=== PATIENT | male | born 1950 | race Caucasian/White ===

== ENCOUNTER 2017-02-08 11:05 | Observation (INO) | payer MEDICARE, BC ==
[2017-02-08] VITALS (9 sets, daily range): BP systolic 136–195; BP diastolic 70–103; PULSE 60–80; RESP 18–20; TEMP 97.7–98.3; O2SAT 96–100
[~2017-02-08] VITALS: Ht 190.5 cm; Wt 100.0 kg
[~2017-02-08 11:05] MED LIST: LORT5TAB PO; SYNT25TA PO
[2017-02-08] MEDS ORDERED: ASPI81CH CHEW (11:25)
[2017-02-08] MEDS ORDERED: CALC500T35 PO (11:25)
[2017-02-08] MEDS ORDERED: VITA100036 PO (11:25)
[2017-02-08] MEDS ORDERED: LEVO.2 PO (11:25)
[2017-02-08] MEDS ORDERED: OMEG100010 PO (11:25)
[2017-02-08] MEDS ORDERED: LOSA100T PO (11:25)
[2017-02-08] MEDS ORDERED: SODIUM CHLORIDE 0.9% FLUSH 10 ML FLUSH IVF PRN (11:45)
--- NOTE | 2017-02-08 11:52 | PD ---
HPI Chief Complaint: Pain: Acute or Chronic Time Seen by Provider: 11:46 Travel History International Travel<30 days: No Contact w/Intl Traveler<30days: No Traveled to known affect area: No History of Present Illness HPI Patient is a 58-year-old male presenting to the emergency department for evaluation of chest pain. Patient states pain is been intermittent for the last 3-4 days, it started as a tingling in between his shoulder blades on his back, then it progressed to midsternal chest sensation per his report. On mid Wednesday patient states that he had felt as if he was having irregular heartbeats. He has a stethoscope at home and was listening to his heart beat and felt it was irregular. He states that his has A. fib and that's what it sounded like to him. He reports increased fatigue. He states that the chest pain does not radiate to his arm or jaw, there has been no nausea, vomiting, shortness of breath, headache, abdominal pain. He has been taking 325 mg of aspirin for the last 3 days, he normally takes 81 mg of aspirin. Patient states that he has a history of an irregular heartbeat, he saw Dr. Swain in the past who had him on digoxin but then took him off. Patient states that he was taken off of it because Dr. Swain felt he no longer needed it. Patient has not had a heart catheter in the past. He has had negative stress tests in the past. His past medical history is significant for hypertension, hypothyroidism, prostate cancer. PFSH Past Medical History Cancer: Yes (PROSTATE) Cardiovascular Problems: Yes (irregular heartbeat) Hypertension: Yes Thyroid Disease: Yes Tetanus Vaccination: > 5 Years Past Surgical History Appendectomy: Yes Prostatectomy: Yes (2005) Tonsillectomy: Yes Other Surgery: Yes (melanoma) Social History Alcohol Use: Yes (OCC) Tobacco Use: No Substance Use: No Allergies-Medications (Allergen,Severity, Reaction): Coded Allergies: No Known Allergies (Verified , 02/08/17) Reported Meds & Prescriptions Reported Meds & Active Scripts Active Reported [place] 3 1000 mg ([place]-3 Fatty Acids) 1 Cap Cap 1 Tab PO DAILY Vitamin D3 (Cholecalciferol) 1,000 Unit Cap 1,000 Units PO DAILY Aspirin 81 Mg Chew 81 Mg CHEW DAILY Calcium (Oyster Shell) 500 Mg Tab 1,000 Mg PO DAILY Losartan (Losartan Potassium) 100 Mg Tab 100 Mg PO DAILY Synthroid (Levothyroxine Sodium) 200 Mcg Tab 200 Mcg PO DAILY Review of Systems Except as stated in HPI: all other systems reviewed are Neg General / Constitutional: Positive: Other (increased fatigue), No: Fever, Chills Eyes: No: Blurred Vision, Visual changes HENT: No: Headaches, Lightheadedness Cardiovascular: Positive: Chest Pain or Discomfort, Irregular Rhythm, No: Dyspnea on exertion, Edema Respiratory: No: Cough, Shortness of Breath Gastrointestinal: No: Nausea, Vomiting, Abdominal Pain Genitourinary: No: Dysuria Musculoskeletal: No: Myalgias Neurologic: No: Weakness, Dizziness, Syncope, Focal Abnormalities Physical Exam Narrative GENERAL: Well developed, well-nourished, alert elderly gentleman. Resting comfortably in no acute distress. SKIN: Focused skin assessment warm/dry. HEAD: Atraumatic. Normocephalic. EYES: Pupils equal and round. No scleral icterus. No injection or drainage. ENT: No nasal bleeding or discharge. Mucous membranes pink and moist. NECK: Trachea midline. No JVD. CARDIOVASCULAR: Regular rate and rhythm. No murmur appreciated. RESPIRATORY: No accessory muscle use. Clear to auscultation. Breath sounds equal bilaterally. GASTROINTESTINAL: Abdomen soft, non-tender, nondistended. Hepatic and splenic margins not palpable. MUSCULOSKELETAL: No obvious deformities. No clubbing. No cyanosis. No edema. NEUROLOGICAL: Awake and alert. No obvious cranial nerve deficits. Motor grossly within normal limits. Normal speech. PSYCHIATRIC: Appropriate mood and affect; insight and judgment normal. Data Data Last Documented VS Vital Signs Date Time Temp Pulse Resp B/P Pulse Ox O2 Delivery O2 Flow Rate FiO2 02/08/17 11:47 98 Room Air 02/08/17 11:09 98.3 77 18 195/103 Orders Electrocardiogram (02/08/17 ) Ckmb (Isoenzyme) Profile (02/08/17 11:45) Complete Blood Count With Diff (02/08/17 11:45) Comprehensive Metabolic Panel (02/08/17 11:45) Magnesium (Mg) (02/08/17 11:45) Prothrombin Time / Inr (Pt) (02/08/17 11:45) Act Partial Throm Time (Ptt) (02/08/17 11:45) Troponin I (02/08/17 11:45) Chest, Single Ap (02/08/17 11:45) Ecg Monitoring (02/08/17 11:45) Bilateral Bp Monitoring (02/08/17 11:45) Iv Access Insert/Monitor (02/08/17 11:45) Oximetry (02/08/17 11:45) Oxygen Administration (02/08/17 11:45) Sodium Chloride 0.9% Flush (Ns Flush) (02/08/17 11:45) Thyroid Stimulating Hormone (02/08/17 11:49) Free Thyroxine (T4) (02/08/17 11:49) CKMB (02/08/17 11:50) CKMB% (02/08/17 11:50) Admit Order (Ed Use Only) (02/08/17 13:25) Labs Laboratory Tests Test 02/08/17 11:50 White Blood Count 4.1 TH/MM3 Red Blood Count 4.18 MIL/MM3 Hemoglobin 14.2 GM/DL Hematocrit 41.8 % Mean Corpuscular Volume 99.9 FL Mean Corpuscular Hemoglobin 34.1 PG Mean Corpuscular Hemoglobin 34.1 % Concent Red Cell Distribution Width 13.1 % Platelet Count 205 TH/MM3 Mean Platelet Volume 8.3 FL Neutrophils (%) (Auto) 56.7 % Lymphocytes (%) (Auto) 26.1 % Monocytes (%) (Auto) 13.7 % Eosinophils (%) (Auto) 2.5 % Basophils (%) (Auto) 1.0 % Neutrophils # (Auto) 2.3 TH/MM3 Lymphocytes # (Auto) 1.1 TH/MM3 Monocytes # (Auto) 0.6 TH/MM3 Eosinophils # (Auto) 0.1 TH/MM3 Basophils # (Auto) 0.0 TH/MM3 CBC Comment DIFF FINAL Differential Comment Prothrombin Time 10.7 SEC Prothromb Time International 1.0 RATIO Ratio Activated Partial 28.9 SEC Thromboplast Time Sodium Level 136 MEQ/L Potassium Level 4.6 MEQ/L Chloride Level 103 MEQ/L Carbon Dioxide Level 25.4 MEQ/L Anion Gap 8 MEQ/L Blood Urea Nitrogen 16 MG/DL Creatinine 1.44 MG/DL Estimat Glomerular Filtration 49 ML/MIN Rate Random Glucose 91 MG/DL Calcium Level 8.9 MG/DL Magnesium Level 2.3 MG/DL Total Bilirubin 0.4 MG/DL Aspartate Amino Transf 18 U/L (AST/SGOT) Alanine Aminotransferase 24 U/L (ALT/SGPT) Alkaline Phosphatase 71 U/L Total Creatine Kinase 104 U/L Creatine Kinase MB 1.8 NG/ML Troponin I LESS THAN 0.02 NG/ML Total Protein 7.1 GM/DL Albumin 3.7 GM/DL MDM Medical Decision Making Medical Screen Exam Complete: Yes Emergency Medical Condition: Yes Interpretation(s) Vital Signs Date Time Temp Pulse Resp B/P Pulse Ox O2 Delivery O2 Flow Rate FiO2 02/08/17 11:47 98 Room Air 02/08/17 11:09 98.3 77 18 195/103 100 Room Air Vital Signs Date Time Temp Pulse Resp B/P Pulse Ox O2 Delivery O2 Flow Rate FiO2 02/08/17 11:09 98.3 77 18 195/103 100 Room Air Differential Diagnosis Unstable angina versus atypical chest pain versus paroxysmal atrial fibrillation versus electrolyte abnormality versus musculoskeletal pain versus other Narrative Course Patient is a 66-year-old male presenting to the emergency department for evaluation of chest pain for the last 3-4 days. He was sent by his primary care provider Dr. Katie Beth to be evaluated. Labs and imaging ordered and pending. IV access initiated, patient placed on telemetry monitoring and continuous pulse oximetry. at bedside. Vital signs are stable. Initial EKG shows sinus rhythm with a rate of 67. Chest x-ray shows no acute disease CBC is unremarkable Troponin is negative Chemistry with creatinine of 1.44 otherwise unremarkable Coags are normal BP 167/95. Heart rate 87. Patient will be placed in the chest pain center under observation to trend enzymes and possible stress testing. Patient agreeable to plan. Diagnosis Primary Impression: Chest pain Qualified Code: R07.9 - Chest pain, unspecified type Admitting Information Admitting Physician Requests: Observation Condition: Stable Sera Hightower [employer] Feb 08, 2017 11:52
[2017-02-08 12:17] LABS: AUTOMATED NEUTROPHIL # 2.3 TH/MM3 (1.8-7.7); EOSINOPHIL # 0.1 TH/MM3 (0-0.4); EOSINOPHIL % 2.5 % (0.0-4.0); HEMATOCRIT 41.8 % (39.0-51.0); HEMO FLAGS DIFF FINAL; LYMPH % 26.1 % (9.0-44.0); LYMPHOCYTE # 1.1 TH/MM3 (1.0-4.8); MEAN CELL VOLUME 99.9 FL (80.0-100.0); MEAN CORPUSCULAR HEMOGLOBIN 34.1 PG (27.0-34.0); MEAN CORPUSCULAR HGB CONC 34.1 % (32.0-36.0); MONO % 13.7 % (0.0-8.0); NEUT % 56.7 % (16.0-70.0); PLATELET COUNT 205 TH/MM3 (150-450); RED BLOOD COUNT 4.18 MIL/MM3 (4.50-5.90); RED CELL DISTRIBUTION WIDTH 13.1 % (11.6-17.2); WHITE BLOOD COUNT 4.1 TH/MM3 (4.0-11.0)
[2017-02-08 12:25] LABS: APTT (PATIENT) 28.9 SEC (24.3-30.1); PROTHROMBIN TIME - PATIENT 10.7 SEC (9.8-11.6)
--- NOTE | 2017-02-08 12:49 | RADRPT ---
EXAM DATE/TIME: 02/08/2017 11:55 [facility] COMPARISON: No previous studies available for comparison. INDICATIONS : Chest pains with tightness. MEDICAL HISTORY : Myocardial infarction. SURGICAL HISTORY : None. ENCOUNTER: Initial ACUITY: 1 day PAIN SCORE: 4/10 LOCATION: Bilateral chest FINDINGS: A single view of the chest demonstrates the lungs to be symmetrically aerated without evidence of mas s, infiltrate or effusion. The cardiomediastinal contours are unremarkable. Osseous structures are intact. CONCLUSION: No acute disease. Nikos Jimenez MD on February 08, 2017 at 12:48 Board Certified Radiologist. This report was verified electronically.
[2017-02-08 12:54] LABS: ALKALINE PHOSPHATASE 71 U/L (45-117); ALT (GPT) 24 U/L (12-78); ANION GAP 8 MEQ/L (5-15); AST (GOT) 18 U/L (15-37); BICARBONATE 25.4 MEQ/L (21.0-32.0); BLOOD UREA NITROGEN 16 MG/DL (7-18); CHLORIDE 103 MEQ/L (98-107); CREATINE KINASE 104 U/L (39-308); GLOMERULAR FILTRATION RATE 49 ML/MIN (>89); MAGNESIUM 2.3 MG/DL (1.5-2.5); POTASSIUM 4.6 MEQ/L (3.5-5.1); SODIUM (NA) 136 MEQ/L (136-145); TOTAL BILIRUBIN ADULT 0.4 MG/DL (0.2-1.0)
[2017-02-08 13:06] LABS: CKMB 1.8 NG/ML (0.5-3.6)
[2017-02-08] MEDS ORDERED: ACETAMINOPHEN/HYDROcodone 325 MG/7.5 MG TAB PO PRN (14:45)
[2017-02-08] MEDS ORDERED: ACETAMINOPHEN 500 MG CPLT PO PRN (14:45)
[2017-02-08] MEDS ORDERED: SODIUM CHLORIDE 0.9% FLUSH 5 ML FLUSH IVF PRN (14:45)
[2017-02-08] MEDS ORDERED: ALPRAZolam 0.25 MG TAB PO PRN (14:45)
[2017-02-08] MEDS ORDERED: ONDANSETRON HCL 4 MG/2 ML VIAL IV PRN (14:45)
[2017-02-08] MEDS ORDERED: cloNIDine HCL 0.1 MG TAB PO ONE (14:45)
--- NOTE | 2017-02-08 15:32 | HHI.HP ---
[facility] Primary Care Physician Katie Garsia MD Chief Complaint Chest pain History of Present Illness This is a 66-year-old male that presents to the ED via private vehicle complaining of 2 episodes of chest discomfort. The first episode began 4 days ago. He is driving home when it occurred. He describes it as "a discomfort." It lasted for 5 minutes. There are no associated shortness breath, nausea, or diaphoresis. He did however have a sensation of his heart beating irregular. When he got home he uses stethoscope and he believes he heard an irregular rhythm. That last about 30 minutes. The next day he had no issues and in fact went to the gym for an hour and worked out pretty hard without any issues. Then yesterday while doing nothing in particular he developed another discomfort in his chest that felt also little tingly that lasted for 5 minutes however he felt fatigued which lasted a couple hours. He did not have the sensation of his heart beating irregular. He had seen Dr. Swain in the past. He states in his 30s he was diagnosed with an irregular heartbeat and was on Lanoxin for couple years. He cannot recall ever being told that he had atrial fibrillation, just that he had an irregular heartbeat. His last stress test was 5-6 years ago and it was normal. Denies recent illness. Denies fevers or chills. Review of Systems General: Patient denies fevers, chills recent, and recent travel HEENT: Patient denies headache, sore throat, difficulty swallowing. Cardiovascular: Had the sensation of his heart beating irregular and saw auscultated with the stethoscope and believed he heard the regularity as well. Has the chest discomfort as mentioned above. Denies sensation of heart beating rapidly. No syncope. Denies diaphoresis. Respiratory: Denies shortness of breath or inspirational chest discomfort. Denies coughing wheezing or hemoptysis. GI: Patient denies nausea, vomiting, diarrhea, abdominal pain, bloody stools. Musculoskeletal: Patient denies joint pain or edema. Denies calf pain or edema. Neurovascular: Patient denies numbness, tingling, weakness in extremities. Denies headache. Endocrine: Denies polyuria and polydipsia. Hematologic: Denies easy bruising. Skin: Denies rash or itching. Past Family Social History Allergies: Uncoded Allergies: iv contrast (Allergy, Intermediate, Itching, 02/08/17) itch Past Medical History Hypertension, hypothyroidism, prostate cancer with prostatectomy, hyperlipidemia however he states that he was told that his good cholesterol bounces out of his bed cholesterol and does not take medication. Denies diabetes and known CAD. Past Surgical History Prostatectomy secondary to prostate cancer. Melanoma excised. Tonsillectomy and appendectomy. Reported Medications Reported Meds & Active Scripts Active Reported [place] 3 1000 mg ([place]-3 Fatty Acids) 1 Cap Cap 1 Tab PO DAILY Vitamin D3 (Cholecalciferol) 1,000 Unit Cap 1,000 Units PO DAILY Aspirin 81 Mg Chew 81 Mg CHEW DAILY Calcium (Oyster Shell) 500 Mg Tab 1,000 Mg PO DAILY Losartan (Losartan Potassium) 100 Mg Tab 100 Mg PO DAILY Synthroid (Levothyroxine Sodium) 200 Mcg Tab 200 Mcg PO DAILY Active Ordered Medications Current Medications Medications (Trade) Dose Ordered Sig/Naima Route Start Time Stop Time Status Last Admin (NS Flush) 2 ml UNSCH PRN IVF 02/08/17 14:45 (NS Flush) 2 ml BID IVF 02/08/17 21:00 (Tylenol) 500 mg Q4H PRN PO 02/08/17 14:45 ([place] 7.5-325 Mg) 1 tab Q4H PRN PO 02/08/17 14:45 (Zofran Inj) 4 mg Q6H PRN IV 02/08/17 14:45 (Aspirin) 325 mg DAILY PO 02/09/17 09:00 (Xanax) 0.25 mg Q8H PRN PO 02/08/17 14:45 Family History Denies family history of CAD. Social History Patient quit smoking 45 years ago. Has occasional alcohol. Denies illicit drugs. He is . Physical Exam Vital Signs Vital Signs Date Time Temp Pulse Resp B/P Pulse Ox O2 Delivery O2 Flow Rate FiO2 02/08/17 14:45 79 18 175/86 99 Room Air 02/08/17 13:45 77 18 165/86 99 Room Air 02/08/17 11:47 98 Room Air 02/08/17 11:09 98.3 77 18 195/103 100 Room Air Physical Exam GENERAL: This is a well-nourished, well-developed patient, in no apparent distress. Patient speaks in clear complete sentences. Patient is pleasant. HEENT: Head is atraumatic and normocephalic. Neck is supple without lymphadenopathy and trachea is midline. No JVD or carotid bruits. CARDIOVASCULAR: Regular rate and rhythm without murmurs, gallops, or rubs. RESPIRATORY: Clear to auscultation. Breath sounds equal bilaterally. No wheezes , rales, or rhonchi. Chest wall is nontender. No use of accessory muscles. GASTROINTESTINAL: Abdomen is nontender, nondistended. Abdomen soft. No obvious pulsatile mass or bruit. No CVA tenderness. Strong femoral pulses bilaterally. Normal bowel sounds in all quadrants. MUSCULOSKELETAL: Patient is moving upper and lower extremities freely. No calf tenderness or edema, no Homans sign. Strong pulses in upper and lower extremities. NEUROLOGICAL: Patient is alert and oriented. Cranial nerves 2-12 are grossly intact. No focal deficits and speech is clear. SKIN: No rash and turgor is normal. Laboratory Laboratory Tests Test 02/08/17 11:50 White Blood Count 4.1 Red Blood Count 4.18 Hemoglobin 14.2 Hematocrit 41.8 Mean Corpuscular Volume 99.9 Mean Corpuscular Hemoglobin 34.1 Mean Corpuscular Hemoglobin 34.1 Concent Red Cell Distribution Width 13.1 Platelet Count 205 Mean Platelet Volume 8.3 Neutrophils (%) (Auto) 56.7 Lymphocytes (%) (Auto) 26.1 Monocytes (%) (Auto) 13.7 Eosinophils (%) (Auto) 2.5 Basophils (%) (Auto) 1.0 Neutrophils # (Auto) 2.3 Lymphocytes # (Auto) 1.1 Monocytes # (Auto) 0.6 Eosinophils # (Auto) 0.1 Basophils # (Auto) 0.0 CBC Comment DIFF FINAL Differential Comment Prothrombin Time 10.7 Prothromb Time International 1.0 Ratio Activated Partial 28.9 Thromboplast Time Sodium Level 136 Potassium Level 4.6 Chloride Level 103 Carbon Dioxide Level 25.4 Anion Gap 8 Blood Urea Nitrogen 16 Creatinine 1.44 Estimat Glomerular Filtration 49 Rate Random Glucose 91 Calcium Level 8.9 Magnesium Level 2.3 Total Bilirubin 0.4 Aspartate Amino Transf 18 (AST/SGOT) Alanine Aminotransferase 24 (ALT/SGPT) Alkaline Phosphatase 71 Total Creatine Kinase 104 Creatine Kinase MB 1.8 Troponin I LESS THAN 0.02 Total Protein 7.1 Albumin 3.7 Result Diagram: 02/08/17 1150 02/08/17 1150 Imaging Last 24 hours Impressions Chest X-Ray 02/08/17 1145 Signed Impressions: Service Date/Time: Wednesday, February 08, 2017 11:55 - CONCLUSION: No acute disease. Nikos Jimenez MD Course Initial EKG has sinus rhythm without significant ST segment depressions or elevations. I reviewed his monitor, no arrhythmias. Assessment and Plan Assessment and Plan * Chest pain: Patient's discomfort is atypical. First troponin was normal. Patient has been seen by Dr. Tomas Carr of cardiology in the chest pain center and will undergo a Carson protocol ETT. He'll be discharged home if the stress test were to be nonischemic. * Hypertension: Continue current medication. * Hyperlipidemia: Patient when he discussed this with his primary care physician to see if he needs medication. * Hypothyroidism: Patient states that his thyroid levels were checked a few months ago more okay. Continues medication. Patient is stable at this time. He is agreeable to this plan. Aquiles Burger Feb 08, 2017 15:32
--- NOTE | 2017-02-08 16:48 | TR ---
Date Performed: 02/08/2017 Time Performed: 15:42:46 DOCTOR: Tomas Carr DRUG LIST: CLINICAL HISTORY: REASON FOR TEST: Chest DISCOMFORT REASON FOR ENDING: OBSERVATION: CONCLUSION: FREDDIE PROTOCOL. NO CP. TEST STOPPED AFTER EXCEEDING GOAL HR SECONDARY TO SOB AND LEG FATIGUE.Maximum NI=218 % Max HR Svkkqmrc=686.0% Maximum ME=396/88 Total Exercise Time=5:31 COMMENTS: At peak of exercise, ST depression noted resolving by 1 minute of recovery. No chest p ain present suggesting possible false positive result. will repeat with nuclear imaging
[2017-02-08] MEDS ORDERED: cloNIDine HCL 0.1 MG TAB PO PRN (17:00)
[2017-02-08] MEDS ORDERED: RESP: ALBUTEROL 2.5 MG/IPRATROPIUM 0.5 MG NEB (PRN) INH (17:00)
[2017-02-08 18:58] LABS: CREATINE KINASE 76 U/L (39-308)
[2017-02-08] MEDS: SODIUM CHLORIDE 0.9% FLUSH 5 ML FLUSH IVF SCH (20:37)
[2017-02-08 22:56] LABS: FREE T4 1.32 NG/DL (0.76-1.46)
[2017-02-09] VITALS: PULSE 54
[2017-02-09 04:00] VITALS: PULSE 48
[2017-02-09 04:54] VITALS: BP 156/69; PULSE 56; RESP 18; TEMP 97.5; O2SAT 95
[2017-02-09] MEDS ORDERED: LEVOTHYROXINE SODIUM 200 MCG TAB PO SCH (06:00)
[2017-02-09 08:00] VITALS: PULSE 97
[2017-02-09 08:11] VITALS: BP 145/78; PULSE 61; RESP 18; TEMP 97.5
[2017-02-09] MEDS: SODIUM CHLORIDE 0.9% FLUSH 5 ML FLUSH IVF SCH (08:13)
[2017-02-09] MEDS ORDERED: LOSARTAN 50 MG TAB PO SCH (09:00)
[2017-02-09] MEDS ORDERED: ASPIRIN 325 MG TAB PO SCH (09:00)
--- NOTE | 2017-02-09 09:29 | EKG ---
Date Performed: 02/08/2017 Time Performed: 18:13:25 PTAGE: 66 years EKG: Sinus rhythm WITH SHORT GA INTERVAL WITH OCCASIONAL SUPRAVENTRICULAR PREMATURE COMPLEXES BORDERLINE ECG Since PREVIOUS TRACING , no significant change noted PREVIOUS TRACIN02/08/2017 11.42 DOCTOR: Kristen Caballero Interpretating Date/Time 02/09/2017 09:28:41
[2017-02-09 10:56] VITALS: BP 154/72; PULSE 56; RESP 16; TEMP 97.6
--- NOTE | 2017-02-09 11:42 | RADRPT ---
EXAM DATE/TIME: 02/09/2017 08:47 [facility] COMPARISON: CHEST SINGLE AP, February 08, 2017, 11:55. INDICATIONS : Back discomfort radiating to midsternal chest. Angina DOSE: 35.0 mCi Tc99m Myoview at stress 10.9 mCi Tc99m Myoview at rest REST HEART RATE: 88 BPM TARGET HEART RATE: 129 BPM MAX HEART RATE: 136 BPM REST BLOOD PRESSURE: 148/94 mmHg MAX BLOOD PRESSURE: 182/92 mmHg EJECTION FRACTION: 63% MEDICAL HISTORY : Hypertension. Carcinoma, prostate. Mitral valve prolapse. SURGICAL HISTORY : Prostatectomy. Appendectomy. ENCOUNTER: Initial ACUITY: 4 - 6 days PAIN SCALE: 7/10 LOCATION: Midsternal chest TECHNIQUE: The patient underwent upright treadmill exercise in the chest pain center. Continuous ECG tracing wa s monitored during stress. Gated SPECT imaging was performed after stress, and conventional SPECT im aging was performed at rest. The examination was performed on a SPECT/CT scanner, both attenuation-c orrected and non-corrected datasets were reviewed. FINDINGS: DISTRIBUTION: The maximum perfused segment at stress is in the lateral wall. PERFUSION STUDY: The pattern of perfusion at stress is within normal limits. GATED STUDY: There is intact wall motion and thickening without hypokinetic or dyskinetic segments. CONCLUSION: Normal examination. RISK CATEGORY: Low (<1% Annual Mortality Rate) Nikos Jimenez MD on February 09, 2017 at 11:38 Board Certified Radiologist. This report was verified electronically.
--- NOTE | 2017-02-09 11:45 | HHI.DCPOC ---
Discharge Care Plan Diagnosis: (1) Chest pain (2) Hypertension (3) Hyperlipidemia Goals to Promote Your Health * To prevent worsening of your condition and complications * To maintain your health at the optimal level Directions to Meet Your Goals Take your medications as prescribed Follow your dietary instruction Follow activity as directed Keep your appointments as scheduled Take your immunizations and boosters as scheduled If your symptoms worsen call your PCP, if no PCP go to Urgent Care Center or Emergency Room Smoking is Dangerous to Your Health. Avoid second hand smoke Call the 24-hour hour crisis hotline for domestic abuse at Aquiles Burger Feb 09, 2017 11:45
--- NOTE | 2017-02-09 16:24 | EKG ---
Date Performed: 02/08/2017 Time Performed: 11:42:06 PTAGE: 66 years EKG: Sinus rhythm NORMAL ECG NO PREVIOUS TRACING DOCTOR: Kristen Caballero Interpretating Date/Time 02/09/2017 16:22:41
--- NOTE | 2017-02-09 16:25 | TR ---
Date Performed: 02/09/2017 Time Performed: 09:36:34 DOCTOR: Kristen Caballero DRUG LIST: CLINICAL HISTORY: REASON FOR TEST: REASON FOR ENDING: OBSERVATION: CONCLUSION: NUC ETT. NO CP OR SOB.Maximum BW=830 % Max HR Achieved=89.0% Maximum TO=800/92 Total Exercise Time=5:00 COMMENTS:
== END 2017-02-09 12:23 | disposition home or self-care (01) ==
LOC: NEPC 11:05 → NEDA 13:27 → NEPFCDU 16:18
PROVIDERS: ADMIT Internal Medicine Cardiovascular Disease; ATTEND Internal Medicine Cardiovascular Disease
DX: R07.9 Chest pain, unspecified (principal); Z85.46 Personal history of malignant neoplasm of prostate; I10 Essential (primary) hypertension; E78.5 Hyperlipidemia, unspecified; E03.9 Hypothyroidism, unspecified; Z85.820 Personal history of malignant melanoma of skin; R53.83 Other fatigue; I49.9 Cardiac arrhythmia, unspecified; Z79.899 Other long term (current) drug therapy
CPT/HCPCS: 71010; 78452; 80053; 82550; 82552; 83735; 84439; 84443; 84484; 85025; 85610; 85730; 93005; 93017; 99285; A9502; G0378